=== PATIENT | female | born 1960 | race African-American/Black ===

== ENCOUNTER → 2017-04-14 | Outpatient (CLI) | payer MEDICARE ==
[~2017-04-14] MED LIST: AMOXICILLIN500 M1 PO; BROMFED DM COU118 ML PO; CALCIUM 600 W/D1 TA1 PO; CLARITIN10 MG/TAB PO; COMBIVENT14.7 GM INH; CYPROHEPTADINE H4 MG PO; FLEXERIL10 M1 PO; FLEXERIL10 MG PO; HUMIBID1200 MG PO; IBUPROFEN PM C1 EACH PO; LEVAQUIN750 MG PO; MOBIC PO; ORUDIS75 M1 PO; PAIN RELIEF325 MG PO; TYLENOL325 M1 PO; VICODIN 5/500 T1 TAB PO; VITAMIN D50000 UNIT PO; VOLTAREN75 MG PO
== END | disposition home or self-care (01) ==
LOC: CMRI 11:38
DX: N28.89 Other specified disorders of kidney and ureter (principal); R31.0 Gross hematuria; Z53.29 Procedure and treatment not carried out because of patient's decision for other reasons